=== PATIENT | female | born 1945 | race Caucasian/White ===

== ENCOUNTER 2023-07-21 00:37 | Inpatient (IN) | payer OTHER ==
[2023-07-21 02:14] VITALS: BMI 33.7
[2023-07-21] MEDS ORDERED: ONDANSETRON 4 MG/2 ML VIAL IV PRN (02:44)
[2023-07-21] MEDS ORDERED: ACETAMINOPHEN 325 MG TABLET PO PRN (02:44)
--- NOTE | 2023-07-21 02:59 | P.HP ---
Certification for Inpatient Patient admitted to: Inpatient With expected LOS: >2 Midnights Practitioner: I am a practitioner with admitting privileges, knowledge of patient current condition, hospital course, and medical plan of care. Services: Services provided to patient in accordance with Admission requirements found in Title 42 Section 412.3 of the Code of Federal Regulations Patient History Date of Service: 07/21/23 Reason for admission: Palpitation History of Present Illness: 77-year-old man with a history of hypothyroidism, on levothyroxine presented to the emergency department via EMS due to sudden onset palpitations. Patient reported experiencing palpitation which gradually got worse over a period of 20 minutes. She called EMS who gave her 12 mg of IV nursing on the way to the emergency department. According to EMS patient was found to have SVT which converted to sinus rhythm after adenosine dose. At [facility] emergency department, patient initial troponin was 90, later trended up to 1345, patient was in sinus rhythm in the emergency department. EKG done at [facility] showed sinus arrhythmia and right bundle branch. She was diagnosed with NSTEMI, given a dose of aspirin and full dose Lovenox. ED provider called for patient to be transferred here for direct admission for further management. Patient was asymptomatic and still in sinus rhythm during my examination. She denied any chest pain. She endorsed some shortness of breath during the time she was experiencing palpitations. Allergies No Known Drug Allergies Allergy (Verified 05/19/14 20:47) Unknown Home Medications: Levothyroxine [Synthroid*] 150 mcg PO [id number] 05/17/14 Paroxetine HCl [Paxil] 10 mg PO DAILY 05/17/14 Cholestyramine (with Sugar) [Cholestyramine Packet] 2 gm PO DAILY 07/21/23 Mirabegron [Myrbetriq] 50 mg PO DAILY 07/21/23 Multivitamin 1 each PO DAILY 07/21/23 - Past Medical/Surgical History Has patient received pneumonia vaccine in the past: Yes Diabetic: No -: HTN -: pneumonia -: depression -: hypothyroidism -: Hysterectomy -: Esophageal wrap for Acid Reflux -: Gall bladder removal -: Appendicitis -: bilateral knee replacement - Family History Father -: Heart disease, Hypertension Notes: Heart attacks, Rheumatoid Arthritis Mother -: Hypertension Sister -: Hypertension, Cancer Notes: Rheumatoid Arthritis, Breast Cancer - Social History Smoking Status: Former smoker Alcohol use: No CD- Drugs: No Caffeine use: Yes Place of Residence: Home Review of Systems Other: Except as documented, all other systems reviewed and negative. Physical Examination - Vital Signs Temperature: 97.3 F Blood Pressure: 131/66 Pulse: 65 Respirations: 16 Pulse Ox (%): 93 - Physical Exam General: Alert, In no apparent distress, Oriented x3 HEENT: Normocephalic, PERRLA, Mucous membr. moist/pink, Sclerae nonicteric Neck: Supple, JVD not distended Respiratory: Clear to auscultation bilaterally, Normal air movement Cardiovascular: No edema, Regular rate/rhythm, Normal S1 S2, No murmurs Capillary refill: <2 Seconds Gastrointestinal: Normal bowel sounds, Soft and benign, Non-distended, No tenderness Musculoskeletal: No swelling, No tenderness Integumentary: No rashes, No cyanosis Neurological: Normal speech, Normal strength at 5/5 x4 extr, Cranial nerves 3-12 intact Lymphatics: No axilla or inguinal lymphadenopathy Assessment and Plan - Problems (Diagnosis) (1) SVT (supraventricular tachycardia) Current Visit: Yes Status: Acute (2) NSTEMI (non-ST elevated myocardial infarction) Current Visit: Yes Status: Acute (3) Hypothyroidism Current Visit: Yes Status: Acute - Plan Admit patient to the medical floor Telemetry Continue to trend troponin Start full dose Lovenox. Start oral metoprolol Obtain echocardiogram Cardiology consult Check TSH and free T4. Hold Synthroid TSH and free T4 results. Monitor and optimize electrolytes, keep magnesium greater than 2 and potassium greater than 4. Check lipid profile. - Advance Directives Does patient have a Living Will: Yes Does patient have a Durable POA for Healthcare: Yes
[2023-07-21] MEDS: NA CHLORIDE 0.9% 1,000 ML IV SCH ×2 (03:16→08:14)
[2023-07-21 04:47] LABS: Absolute Eosinophils 0.1 K/uL (0-0.5); Absolute Lymphocytes (CBC) 2.8 K/uL (0.7-4.9); Basophils % 0.2 % (0-1.3); Hematocrit 36.8 % (36.0-45.0); Hemoglobin 12.2 g/dL (12.0-15.0); Lymphocytes % 20.9 % (15.3-44.8); MCV 89.9 fL (80-100); MPV 9.8 fL (7.6-11.3); Platelets 333 thou/uL (152-406)
[2023-07-21 05:09] LABS: Anion Gap 9.1 mEq/L (5.0-15.0); Magnesium 2.2 mg/dL (1.6-2.4); Phosphorus 3.3 mg/dL (2.5-4.9); Potassium 4.1 mEq/L (3.5-5.1); Thyroid Stimulating Hormone 3.2 uIU/mL (0.358-3.740)
[2023-07-21] MEDS: METOPROLOL TAR 25 MG TAB PO SCH (05:38)
[2023-07-21 06:17] LABS: Specific Gravity 1.015 (1.005-1.030); Urine Bacteria None Seen /HPF (<20); Urine Bilirubin NEGATIVE (Negative); Urine Blood Negative (Negative); Urine Clarity Turbid (Clear); Urine Color Light-Yellow (Yellow); Urine Glucose NEGATIVE (Negative); Urine Mucus Slight /HPF (None Seen); Urine Protein NEGATIVE (Negative); Urine RBC <5 /HPF (None Seen); Urine Urobilinogen Normal (Normal); Urine pH 5.5 (5.0-7.0)
[2023-07-21] MEDS: ASPIRIN EC 81 MG TAB PO SCH (08:37)
[2023-07-21] MEDS: ENOXAPARIN 100 MG/ML SYR SQ SCH (08:42)
[2023-07-21] MEDS ORDERED: ENOXAPARIN 80 MG/0.8 ML SQ SCH (09:00)
[2023-07-21] MEDS ORDERED: ENOXAPARIN 40 MG/0.4 ML SQ SCH (09:00)
--- NOTE | 2023-07-21 14:10 | P.PN ---
Date of Service: 07/21/23 Subjective: No chest pain or shortness of breath no acute events since admission ROS: 10 point ROS as noted above, otherwise negative Physical exam GEN: Alert, oriented, NAD HEENT: Normal conjunctiva, sclera anicteric CV: Regular rate and rhythm, no edema Pulm: Nonlabored respirations on room air ABD: Soft, nontender, nondistended MSK: No joint tenderness Integumentary: No rashes Neuro: Normal speech, normal affect Vitals reviewed Problem List NSTEMI SVT-resolved SVT resolved with adenosine Was recently prescribed Bromfed, steroids, albuterol for bronchitis-possibly contributed to SVT Has been in sinus rhythm since admission-was started on metoprolol and became bradycardic in the 40s-Metropol discontinued Troponin peaked around 10,000, discussed with cardiology plan for heart catheterization 3/4 Switch to heparin drip this evening N.p.o. after midnight in anticipation of heart catheterization Hypothyroidism Continue home medication VTE: Therapeutic Lovenox-heparin drip tonight Code: Full Dispo: 24 to 48 hours Time Spent Managing Pts Care (In Minutes): 35
[2023-07-21 18:39] LABS: Protime INR 1.1
[2023-07-21] MEDS: HEPARIN/D5W 25,000 UNIT/500 ML BAG IV SCH (20:45)
[2023-07-21] MEDS: ATORVASTATIN 40 MG TAB PO SCH (20:49)
[2023-07-21] MEDS: guaiFENesin 100 MG/5 ML UCUP PO PRN (23:20)
[2023-07-22] MEDS ORDERED: VERAPAMIL HCL 10 MG/4 ML VIAL IV ONE (06:44)
[2023-07-22] MEDS ORDERED: HEPA 1000U/500MLS 2,000 UNIT/1,000 ML BAG IV ONE (06:44)
[2023-07-22] MEDS ORDERED: LIDOCAINE 1% 20 ML MDV ONE (06:44)
[2023-07-22] MEDS ORDERED: TICAGRELOR 90 MG TABLET PO ONE (06:45)
[2023-07-22] MEDS ORDERED: HEPARIN 5000 UNIT/ML 1 ML VIAL ONE (06:45)
[2023-07-22] MEDS ORDERED: ATROPINE SULF 1 MG/10 ML SYR IV ONE (06:45)
[2023-07-22] MEDS ORDERED: HEPARIN 10,000 UNIT/10 ML VIAL IV ONE (06:45)
[2023-07-22] MEDS ORDERED: ASPIRIN 325 MG TAB ONE (06:46)
[2023-07-22] MEDS ORDERED: CLOPIDOGREL 75 MG TABLET ONE (06:46)
[2023-07-22 07:01] LABS: Absolute Basophils 0.1 K/uL (0-0.5); Absolute Eosinophils 0.5 K/uL (0-0.5); Absolute Lymphocytes (CBC) 2.9 K/uL (0.7-4.9); Basophils % 0.7 % (0-1.3); Hematocrit 37.9 % (36.0-45.0); Hemoglobin 12.7 g/dL (12.0-15.0); Lymphocytes % 30.1 % (15.3-44.8); MCV 90.4 fL (80-100); MPV 9.9 fL (7.6-11.3); Platelets 290 thou/uL (152-406); RBC Red Blood Cell Count 4.19 M/uL (3.86-4.86)
[2023-07-22] MEDS ORDERED: NITROGLYCERIN/D5W 25 MG/250 ML BTL IV ONE (07:08)
[2023-07-22] MEDS ORDERED: NA CHLORIDE 0.9% 500 ML ONE (07:08)
[2023-07-22] MEDS ORDERED: FENTANYL CITR 100 MCG/2 ML ONE (07:08)
[2023-07-22] MEDS ORDERED: MIDAZOLAM HCL 2 MG/2 ML INJ ONE (07:08)
[2023-07-22 07:25] LABS: Anion Gap 8.6 mEq/L (5.0-15.0); Phosphorus 3.4 mg/dL (2.5-4.9); Potassium 3.6 mEq/L (3.5-5.1)
--- NOTE | 2023-07-22 12:41 | ECHO ---
HEIGHT: 5 ft 4 in WEIGHT: 196 lb 6.4 oz DATE OF STUDY: 07/22/[address]: Markie Perez MD 2-DIMENSIONAL: YES M.MODE: YES DOPPLER: YES COLOR FLOW: YES TDS: NO PORTABLE: YES DEFINITY: NO BUBBLE STUDY: NO DIAGNOSIS: NSTEMI, SUPRAVENTRICULAR TACHYCARDIA CARDIAC HISTORY: CATHERIZATION: SURGERY: PROSTHETIC VALVE: PACEMAKER: MEASUREMENTS (cm) DIASTOLIC (NORMALS) SYSTOLIC (NORMALS) IVSd 1.0 (0.6-1.2) LA Diam 4.3 (1.9-4.0) LVEF 74% LVIDd 4.0 (3.5-5.7) LVIDs 2.3 (2.0-3.5) %FS 43% LVPWd 1.0 (0.6-1.2) Ao Diam 2.7 (2.0-3.7) 2 DIMENSIONAL ASSESSMENT: RIGHT ATRIUM: NORMAL LEFT ATRIUM: NORMAL RIGHT VENTRICLE: NORMAL LEFT VENTRICLE: NORMAL TRICUSPID VALVE: TRACE MITRAL VALVE: MODERATE MITRAL ANNULAR CALCIFICATION PULMONIC VALVE: NORMAL AORTIC VALVE: MILD CALCIFICATION PERICARDIAL EFFUSION: NONE AORTIC ROOT: NORMAL LEFT VENTRICULAR WALL MOTION: NORMAL DOPPLER/COLOR FLOW: GRADE I DIASTOLIC DYSFUNCTION. COMMENTS: 1. NORMAL LEFT VENTRICULAR SYSTOLIC FUNCTION 55-60%. NORMAL WALL MOTION. 2. GRADE I DIASTOLIC DYSFUNCTION. 3. MODERATE MITRAL ANNULAR CALCIFICATION, NO STENOSIS. 4. MILD AORTIC CALCIFICATION, NO STENOSIS. TECHNOLOGIST: Ivan MORLEY [facility]
--- NOTE | 2023-07-22 13:30 | P.PN ---
Date of Service: 07/22/23 Subjective: Had heart catheterization today Recovering well No complaints ROS: 10 point ROS as noted above, otherwise negative Physical exam GEN: Alert, oriented, NAD HEENT: Normal conjunctiva, sclera anicteric CV: Regular rate and rhythm, no edema Pulm: Nonlabored respirations on room air ABD: Soft, nontender, nondistended MSK: No joint tenderness Integumentary: No rashes Neuro: Normal speech, normal affect Vitals reviewed Problem List NSTEMI SVT-resolved SVT resolved with adenosine Was recently prescribed Bromfed, steroids, albuterol for bronchitis-possibly contributed to SVT Has been in sinus rhythm since admission-was started on metoprolol and became bradycardic in the 40s-Metropol discontinued Troponin peaked around 10,000, discussed with cardiology plan for heart catheterization Heart catheterization performed 07/21 with 70% mid LAD stenosis with stent placement Patient will need dual antiplatelet therapy, statin at discharge Did not tolerate beta-adrienne as she had significant bradycardia Hypothyroidism Continue home medication VTE: Lovenox Code: Full Dispo: 24 Time Spent Managing Pts Care (In Minutes): 35
[2023-07-22] MEDS: CHOLESTYRAMINE/ASP 4 GM/PKT PO ONE (14:15)
--- NOTE | 2023-07-22 16:05 | EKG ---
Test Date: 2023-07-21 Test Time: 07:14:06 Transcribing Machine Mechanic: PING MEASUREMENT RESULTS: Intervals: Rate: 50 AR: 134 QRSD: 130 QT: 446 QTc: 406 [place]: P: 73 AR: 134 QRS: -18 T: 115 INTERPRETIVE STATEMENTS: Sinus bradycardia Right bundle branch block Moderate voltage criteria for LVH, may be normal variant T wave abnormality, consider lateral ischemia Abnormal ECG Compared to ECG 05/18/2014 07:49:40 Right bundle-branch block now present T-wave abnormality now present ST (T wave) deviation no longer present Possible ischemia still present Electronically Signed On 07-22-23 16:04:28 TRAFFIC SAFETY ADMINISTRATOR by Ruben Bell
--- NOTE | 2023-07-22 19:17 | CON ---
Date of Consultation: 07/22/2023 Reason For Consultation: Elevated troponin. History Of Present Illness: A 77-year-old woman, history of hypothyroidism, hypertension, depression , presented to [facility] [place] [facility] due to sudden onset of palpitations along with chest discomfort and dyspnea on exertion, found to have SVT, converted to sinus rhythm with adenosine and the patient was sent to our hospital for further evaluation. Troponin went up to 1300 range. At this moment, th e patient does not have any chest pain or shortness of breath. Past Medical History: As outlined above in HPI. Medications: Refer reconciliation sheet for detailed list. Allergies: NO KNOWN DRUG ALLERGIES. Family History: No premature coronary artery disease or cancer. Social History: She is an ex-smoker. Does not drink or use any drugs. Review of Systems: All systems reviewed and they were negative except as mentioned in HPI. Physical Examination: Vital Signs: Reviewed. Head and Neck: Pupils are equal, reactive to light. Intact eye movements. No JVD. No cervical lym phadenopathy. Neck is supple. Thyroid is not enlarged. Lungs: Clear to auscultation bilaterally. No rhonchi, rales, or crackles. No accessory muscle use. Heart: Regular rate and rhythm. No extra sounds. Abdomen: Soft, nontender. Bowel sounds positive. No organomegaly. No masses or hernia. No rigidi ty or rebound. Extremities: No edema, clubbing, or cyanosis. Intact pulses. Skin: No rash. Neurologic: Alert, awake, oriented x3. No acute focal deficits appreciated. Investigations: Troponin peaked at 10,877 and coming down. BUN 14, creatinine 0.71, and hemoglobin is 12.7. Assessment/recommendation: 1.Exx-BN-[id number] myocardial infarction. The patient is n.p.o. for coronary angiogram today and PC I as needed. Continue baby aspirin. 2.Dyslipidemia. Continue Lipitor 40 mg q.h.s. 3.SVT transient episode and resolved heart rate, in the low side right now. We will monitor. If th is becomes repetitive, then SVT ablation can be done as an outpatient. 4.Hypertension. Blood pressure is controlled. SR/MODL Voice ID: [id number] Report ID: [id number]
[2023-07-22] MEDS: TICAGRELOR 90 MG TABLET PO SCH (19:59)
[2023-07-22 21:48] VITALS: O2SAT 95
[2023-07-23] MEDS: LEVOTHYROXINE SOD 0.075 MG TAB PO SCH (05:34)
[2023-07-23] MEDS: POTASSIUM 25 MEQ EFFERV TAB PO ONE (08:34)
[2023-07-23] MEDS: PARoxetine HCL 10 MG TAB PO SCH (08:34)
[2023-07-23] MEDS: Mirabegron [Myrbetriq] 50 MG Tab.Er.24h PO SCH (08:35)
[2023-07-23] MEDS: CHOLESTYRAMINE/ASP 4 GM/PKT PO SCH (08:35)
[2023-07-23 08:42] VITALS: BP 118/68; TEMP 97.2
--- NOTE | 2023-07-23 18:11 | P.DS ---
Admission Date: 07/21/23 Discharge Date: 07/28/23 Disposition: ROUTINE DISCHARGE Discharge Condition: GOOD Reason for Admission: Palpitation Brief History of Present Illness: Diagnosis NSTEMI SVT-resolved Hypothyroidism HPI 07/21/23 Denae Gray is a 77-year-old female with a history of hypothyroidism, on levothyroxine presented to the emergency department via EMS due to sudden onset palpitations. Patient reported experiencing palpitation which gradually got worse over a period of 20 minutes. She called EMS who gave her 12 mg of IV nursing on the way to the emergency department. According to EMS patient was found to have SVT which converted to sinus rhythm after adenosine dose. At [facility] emergency department, patient initial troponin was 90, later trended up to 1345, patient was in sinus rhythm in the emergency department. EKG done at [facility] showed sinus arrhythmia and right bundle branch. She was diagnosed with NSTEMI, given a dose of aspirin and full dose Lovenox. ED provider called for patient to be transferred here for direct admission for further management. Patient was asymptomatic and still in sinus rhythm during my examination. She denied any chest pain. She endorsed some shortness of breath during the time she was experiencing palpitations. Hospital Course: Denae Gray is a pleasant 78 year old female with a past medical history significant for hypothyroidism, on levothyroxine who was admitted to the [facility] on 07/21/23 for SVT/NSTEMI. Denae was admitted to the hospital after an episode of SVT which was treated with adenosine. Her SVT was possibly related to recent use of steroids, Bromfed, albuterol inhaler for bronchitis or possibly acute NE as she was found to have a significantly elevated troponin during her hospitalization.She evaluated by cardiology who recommended cardiac catheterization. Cardiac catheterization performed on 07/22/2023 showed 70% mid LAD stenosis, stent was placed at that time. Patient tolerated procedure well and is stable for discharge. Patient will be provided prescriptions for dual antiplatelet therapy and statin. She was treated initially with metoprolol but had bradycardia into the 40s, metoprolol was held. On 07/23/23, Denae was seen on morning rounds and deemed medically stable for discharge. Denae was discharged with instructions to schedule follow-up appointments with PCP and Dr. Bell. Denae was provided prescriptions for Brilinta, lipitor, and Asa. The patient was given the opportunity to ask questions and reported no further questions. Furthermore, all questions were answered to the best of my ability. A copy of this discharge summary will be sent to the above providers to facilitate continuity of care. Today, I personally spent 50 minutes with Denae, of which greater than 50% of the time was spent in patient education, counseling, and coordination of care as described above. Physical exam GEN: AAOx3, NAD HEENT: Normal conjunctiva, sclera anicteric CV: RRR, no edema Pulm: Nonlabored respirations on room air ABD: Soft benign on palpation, ND/NT MSK: No joint tenderness Integumentary: No rashes Neuro: Normal speech, normal affect Vital Signs/Physical Exam: Temp Pulse Resp BP Pulse Ox 97.2 F 63 14 118/68 96 07/23/23 08:00 07/23/23 08:00 07/23/23 08:00 07/23/23 08:00 07/23/23 08:00 Laboratory Data at Discharge: WBC 9.80 thou/uL (4.3-10.9) 07/22/23 06:16 Hgb 12.7 g/dL (12.0-15.0) 07/22/23 06:16 Hct 37.9 % (36.0-45.0) 07/22/23 06:16 Plt Count 290 thou/uL (152-406) 07/22/23 06:16 PT 12.1 SECONDS (9.5-12.5) 07/21/23 18:18 INR 1.10 07/21/23 18:18 APTT 58.0 SECONDS (24.3-36.9) H 07/22/23 06:16 Sodium 139 mEq/L (136-145) 07/22/23 06:16 Potassium 3.6 mEq/L (3.5-5.1) 07/22/23 06:16 BUN 14 mg/dL (7-18) 07/22/23 06:16 Creatinine 0.71 mg/dL (0.55-1.02) 07/22/23 06:16 Glucose 93 mg/dL (74-106) 07/22/23 06:16 Phosphorus 3.4 mg/dL (2.5-4.9) 07/22/23 06:16 Magnesium 2.0 mg/dL (1.6-2.4) 07/22/23 06:16 Triglycerides 137 mg/dL (<150) 07/22/23 06:16 Cholesterol 139 mg/dL (<200) 07/22/23 06:16 HDL Cholesterol 49 mg/dL (40-60) 07/22/23 06:16 Cholesterol/HDL Ratio 2.84 07/22/23 06:16 Home Medications: Levothyroxine [Synthroid*] 150 mcg PO [id number] 05/17/14 Paroxetine HCl [Paxil] 10 mg PO DAILY 05/17/14 Cholestyramine (with Sugar) [Cholestyramine Packet] 2 gm PO DAILY 07/21/23 Mirabegron [Myrbetriq] 50 mg PO DAILY 07/21/23 Multivitamin 1 each PO DAILY 07/21/23 Atorvastatin Calcium [Lipitor] 40 mg PO BEDTIME #30 tab 07/22/23 Ticagrelor [Brilinta] 90 mg PO BID #60 tab 07/22/23 New Medications: Ticagrelor [Brilinta] 90 mg PO BID #60 tab Atorvastatin Calcium [Lipitor] 40 mg PO BEDTIME #30 tab Physician Discharge Instructions: Patient was admitted to the hospital after an episode of SVT which was treated with adenosine. Her SVT was possibly related to recent use of steroids, Bromfed, albuterol inhaler for bronchitis or possibly acute NE as she was found to have a significantly elevated troponin during her hospitalization.She evaluated by cardiology who recommended cardiac catheterization. Cardiac catheterization performed on 07/22/2023 showed 70% mid LAD stenosis, stent was placed at that time. Patient tolerated procedure well and is stable for discharge. Patient will be provided prescriptions for dual antiplatelet therapy, statin. She was treated initially with metoprolol but had bradycardia into the 40s, metoprolol was held. At discharge the patient will need the following new medications: Brilinta 90 mg by mouth twice daily Atorvastatin 40 mg by mouth at bedtime Aspirin 81 mg by mouth [id number] Please follow-up with your primary care doctor 1 to 2 weeks Please also follow-up with cardiologyDr. Arabella If you have trouble affording Brilinta please call the hospital and let us know so we can try an alternative medication Diet: AHA Activity: Ad mady Followup: Ruben Bell MD [ACTIVE - CAN ADMIT] - 1-2 Weeks Enio Ferrara FNP [OUTSIDE PHYSICIAN] - 1-2 Weeks
== END 2023-07-23 10:55 | disposition home or self-care (01) | DRG 321 ==
LOC: 2ND 00:37
PROVIDERS: ADMIT Internal Medicine; ATTEND Internal Medicine
PROC: 027034Z Dilation of Coronary Artery, One Artery with Drug-eluting Intraluminal Device, Percutaneous Approach (ICD-10-PCS; principal; 2023-07-22)
PROC: 4A023N7 Measurement of Cardiac Sampling and Pressure, Left Heart, Percutaneous Approach (ICD-10-PCS; 2023-07-22)
PROC: B2111ZZ Fluoroscopy of Multiple Coronary Arteries using Low Osmolar Contrast (ICD-10-PCS; 2023-07-22)
DX: I47.10 Supraventricular tachycardia, unspecified (principal); I21.4 Non-ST elevation (NSTEMI) myocardial infarction; E03.9 Hypothyroidism, unspecified; I10 Essential (primary) hypertension; E78.5 Hyperlipidemia, unspecified; I45.10 Unspecified right bundle-branch block; K21.9 Gastro-esophageal reflux disease without esophagitis; T38.0X5A Adverse effect of glucocorticoids and synthetic analogues, initial encounter; T48.6X5A Adverse effect of antiasthmatics, initial encounter; Z79.890 Hormone replacement therapy; Z79.899 Other long term (current) drug therapy; Z90.710 Acquired absence of both cervix and uterus; Z96.653 Presence of artificial knee joint, bilateral; Z87.891 Personal history of nicotine dependence
CPT/HCPCS: 36415; 80048; 80061; 81001; 83735; 84100; 84439; 84443; 84484; 85025; 85347; 85610; 85730; 93005; 93306; 93454; 94760; 99152; 99153; C1725; C1877; C1893; C9600; J0461; J1644; J1650; J2001; J2250; J3010; J7030; J7040; Q9966